=== PATIENT | female | born 1995 | race Two or more races ===

== ENCOUNTER 2025-07-18 13:02 | Emergency (ER) | payer MEDICAID, OTHER ==
[~2025-07-18] VITALS: Ht 157.5 cm; Wt 80.2 kg
[2025-07-18 13:14] VITALS: BP 118/74; PULSE 91; RESP 18; TEMP 98.1; O2SAT 95
--- NOTE | 2025-07-18 13:15 | ECG ---
[facility] Test Date: 2025-07-18 Test Time: 13:05:43 Pat Name: LILLIAN OLIVERA Department: ED Room: Gender: F Pharmacy Resource Tech: SEDA : 1995 Requested By: CHANDRA HINOJOSA Order Number: [id number] Reading MD: Ricardo Parnell Measurements Intervals [place] Rate: 84 P: 68 CA: 144 QRS: 46 QRSD: 103 T: 8 QT: 375 QTc: 444 Interpretive Statements Sinus rhythm Low voltage, precordial leads Borderline T abnormalities, anterior leads Electronically Signed On 07-26-2025 21:34:09 PDT by Ricardo Parnell Please click the below link to view image of tracing.
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
== END 2025-07-18 16:25 | disposition left against medical advice (07) ==
LOC: ER 13:02
DX: T75.4XXA Electrocution, initial encounter (principal); F41.9 Anxiety disorder, unspecified; W86.8XXA Exposure to other electric current, initial encounter; Y93.89 Activity, other specified; Y92.89 Other specified places as the place of occurrence of the external cause; Y99.8 Other external cause status
CPT/HCPCS: 93005

== ENCOUNTER 2025-08-15 08:10 | Emergency (ER) | payer MEDICAID ==
[~2025-08-15] VITALS: Ht 157.5 cm; Wt 80.0 kg
[2025-08-15 08:11] VITALS: BP 136/81; PULSE 98; RESP 15; TEMP 98; O2SAT 98
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
--- NOTE | 2025-08-15 09:03 | DVH ---
INDICATION: NECK PAIN TO HANDS COMPARISON: None TECHNIQUE: 3 views of the cervical spine were obtained. FINDINGS: The cervical vertebral alignment is normal. The predental space is normal. The intervertebral disc spaces are well-maintained. No significant facet arthropathy is noted. No acute fracture, vertebral compression deformity or aggressive osseous lesions. The imaged lung apices are unremarkable. IMPRESSION: 1. No acute fracture.
== END 2025-08-15 08:49 | disposition home or self-care (01) ==
LOC: ER 08:10
DX: S16.1XXA Strain of muscle, fascia and tendon at neck level, initial encounter (principal); F41.9 Anxiety disorder, unspecified; X58.XXXA Exposure to other specified factors, initial encounter; Y93.89 Activity, other specified; Y92.89 Other specified places as the place of occurrence of the external cause; Y99.8 Other external cause status
CPT/HCPCS: 72040